=== PATIENT | female | born 1990 | race Caucasian/White ===

== ENCOUNTER 2016-06-17 22:13 | Emergency (ER) | payer SELFPAY ==
[~2016-06-17] VITALS: Ht 160 cm; Wt 81.2 kg
[2016-06-17 22:13] VITALS: BP_SYST 146
[2016-06-17 22:40] VITALS: BP_SYST 146
== END 2016-06-17 22:40 ==
LOC: SED 22:13
DX: S70.12XA Contusion of left thigh, initial encounter (principal); V89.2XXA Person injured in unspecified motor-vehicle accident, traffic, initial encounter; W22.10XA Striking against or struck by unspecified automobile airbag, initial encounter; Y93.89 Activity, other specified; Y99.8 Other external cause status; Y92.89 Other specified places as the place of occurrence of the external cause
CPT/HCPCS: 99283